=== PATIENT | male | born 1965 | race Caucasian/White ===

== ENCOUNTER 2017-04-17 06:42 | Day surgery (SDC) | payer OTHER ==
[~2017-04-17] VITALS: Ht 190.5 cm; Wt 80.4 kg
[2017-04-17] VITALS (11 sets, daily range): BP systolic 112–148; BP diastolic 41–85; PULSE 88–105; RESP 9–20; Ht 190.5 cm; Wt 80.4 kg
[~2017-04-17 06:42] MED LIST: CEFAZOLIN 2 GM/50 ML (PMX) 50 ML IVPB SCH; INHALER; OMEP10CA4 PO; SOD CHLORIDE 0.9% 1,000 ML IV SCH; SODI44SP NS
[2017-04-17] MEDS ORDERED: ALBU18HF INHALATION (07:59)
[2017-04-17] MEDS ORDERED: OMEP20CA16 PO (07:59)
[2017-04-17] MEDS ORDERED: MOME13HF2 INH (07:59)
[2017-04-17] MEDS ORDERED: BUPIVACAINE 0.25% (MPF) 30 ML INJ ONE (08:03)
[2017-04-17] MEDS ORDERED: PROPOFOL 20 ML ONE (08:24)
[2017-04-17] MEDS ORDERED: FENTAnyl 50 MCG/ML VIAL ONE (08:24)
[2017-04-17] MEDS ORDERED: ROCURONIUM 50 MG INJ ONE (08:24)
[2017-04-17] MEDS ORDERED: MIDAZOLAM 1 MG/ML 2 ML INJ ONE (08:24)
[2017-04-17] MEDS ORDERED: KETOROLAC 30 MG INJ ONE (08:25)
[2017-04-17] MEDS ORDERED: METOCLOPRAMIDE 10 MG INJ ONE (08:25)
[2017-04-17] MEDS ORDERED: ROPIVACAINE 0.5 % 30 ML VIAL ONE (08:27)
[2017-04-17] MEDS ORDERED: POLYMYXIN/BACITRACIN 1L IRRIG ONE (08:30)
[2017-04-17] MEDS ORDERED: MEPERIDINE 25 MG INJ IV PRN (09:00)
[2017-04-17] MEDS ORDERED: OXYCODONE/ACETAMINOPHEN (5/325) TAB PO PRN ×2 (09:00)
[2017-04-17] MEDS ORDERED: HYDROmorphONE (0.2 MG/ML) 10ML SYG IV PRN ×3 (09:00)
[2017-04-17] MEDS ORDERED: DIPHENHYDRAMINE 50 MG INJ IV PRN (09:00)
[2017-04-17] MEDS ORDERED: ONDANSETRON 4 MG INJ IV PRN (09:00)
[2017-04-17] MEDS ORDERED: CEFAZOLIN 1 GM INJ ONE (09:04)
[2017-04-17] MEDS ORDERED: HYDROCODONE/APAP (5/325) TAB PO ONE (10:00)
--- NOTE | 2017-04-17 10:22 | SIPON ---
Date/Time of Note Date/Time of Note DATE: 04/17/17 TIME: 10:21 Operative Report Preoperative Diagnosis LIH Postoperative Diagnosis same Operation/Procedure Performed open LIH repair with medium ultrapro hernia system mesh therapeutic injection of subcutaneous marcaine Surgeon see signature line secretary administrative assistant same Anesthesia: general Estimated blood loss: minimal Transfusion Required none Specimen none Grafts/Implants none Complications none Amelia POLANCO Apr 17, 2017 10:22
--- NOTE | 2017-04-17 15:37 | OPR ---
DATE OF OPERATION: 04/17/2017 INDICATION: This is a 51-year-old male with a left inguinal hernia. He requests surgical repair. Risks, alternatives, benefits, and personnel were discussed with patient. Patient expressed underst anding and consents to the operation. PREOPERATIVE DIAGNOSIS: Left inguinal hernia. POSTOPERATIVE DIAGNOSIS: Left inguinal hernia. OPERATION PERFORMED: 1. Open left inguinal hernia repair with medium sized Ultrapro hernia system mesh. 2. Therapeutic subcutaneous injection of local anesthesia. SURGEON: Joanne Garner MD. SPECIMEN: None. COMPLICATIONS: None. ANESTHESIA: General. ESTIMATED BLOOD LOSS: Minimal. DESCRIPTION OF PROCEDURE: The patient was taken to the OR and prepped and draped in the usual steri le fashion. Surgical timeout was performed. IV antibiotics were given. Left inguinal oblique inci cale is made with a 10 blade. Dissection cautery was carried down to the external oblique fascia. External oblique fascia is opened with a 15 blade. This incision is extended medial inferiorly and lateral superiorly with Metzenbaum scissors. Cord structures were identified and encircled with a P enrose drain. Indirect hernia was identified. Also weak floor of the inguinal canal was identified . The indirect hernia was reinforced with disk portion UltraPro hernia system mesh. This was secu red in place with a running 0 Prolene from the pubic tubercle along the shelving edge of the inguina l ligament. Superiorly, the disk was secured to the internal oblique with interrupted 3-0 Vicryl. Onlay mesh is secured in a similar fashion from the pubic tubercle along the shelving edge of the in guinal ligament. Straps are created and reapproximated with interrupted 0 Prolene to recreate the i nguinal ring. The onlay mesh was secured to the internal oblique with interrupted 3-0 Vicryl. The external oblique fascia was closed with a running 0 Vicryl. Jaun's fascia was closed with interru pted 3-0 Vicryl. Skin was closed using skin dalia. Subcutaneous local anesthesia was injected th roughout the incision site. Dry dressings were applied. Dictated By: JOANNE OLIVERA/JEWEL Conf#: [id number] DID#: [id number]
== END 2017-04-17 11:42 | disposition home or self-care (01) ==
LOC: SDS 06:42
PROVIDERS: ATTEND Surgery
DX: K40.90 Unilateral inguinal hernia, without obstruction or gangrene, not specified as recurrent (principal); J44.9 Chronic obstructive pulmonary disease, unspecified
CPT/HCPCS: 49505; C1781; J0690; J1170; J1885; J2175; J2250; J2405; J2765; J2795; J3010; Z7512; Z7610

== ENCOUNTER 2018-04-07 14:35 | Emergency (ER) | END 2018-04-07 16:43 | disposition home or self-care (01) ==